=== PATIENT | female | born 1940 | race Caucasian/White ===

== ENCOUNTER → 2020-06-12 | Outpatient (CLI) | payer MEDICARE, OTHER | LOC: LABNPT 08:12 | PROVIDERS: ATTEND Internal Medicine Gastroenterology | DX: Z01.812 Encounter for preprocedural laboratory examination (principal) | CPT/HCPCS: 87635 ==

== ENCOUNTER → 2020-06-17 | Outpatient (CLI) | payer MEDICARE, OTHER | LOC: LABNPT 05:32 | PROVIDERS: ATTEND Internal Medicine Gastroenterology | DX: Z01.812 Encounter for preprocedural laboratory examination (principal); Z20.828 Contact with and (suspected) exposure to other viral communicable diseases | CPT/HCPCS: 87635 ==

== ENCOUNTER → 2021-04-12 | Outpatient (CLI) | payer MEDICARE, OTHER ==
[~2021-04-12] MED LIST: CATHETER FLUSH 10 ML SYR IV PRN; HOLD METFORMIN - RECEIVED CONTRAST 20 ML VIAL IV SCH; IOHEXOL 350 MG/ML 100 ML (OMNIPAQUE 350) VIAL IV ONE; NS 100 ML (IVPB) BAG IV ONE
[2021-04-12 08:21] LABS: CREATININE SERUM 0.67 MG/DL (0.60-1.30)
--- NOTE | 2021-04-12 09:44 | Diagnostic Imaging Report ---
PROCEDURE: CT chest with contrast only. TECHNIQUE: Multiple contiguous axial images were obtained through the chest after administration of intravenous contrast. Auto Exposure Controls were utilized during the CT exam to meet ALARA standards for radiation dose reduction. DATE: April 12, 2021. COMPARISON: Chest radiographs September 10, 2013. INDICATION: 80-year-old female, shortness of breath. History of tobacco use and basal cell carcinoma of the face. FINDINGS: There is a 3 mm right upper lobe pulmonary nodule on axial image 17. There are mild linear opacities in left lower lobe and left upper lobe consistent with mild atelectasis and/or scarring. There is no additional focal airspace consolidation. There is no pneumothorax. There is no pleural effusion. The more central airways are patent. The heart is not enlarged. There is no pericardial effusion. There are coronary artery calcifications and additional areas of atherosclerotic disease. 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 There is no identified abnormally enlarged mediastinal, hilar, or axillary lymph node which meets CT size criteria for adenopathy. There is a right adrenal nodule on axial image 120 measuring up to 2.6 cm in size with internal attenuation of 10 Hounsfield units which is consistent with an adrenal adenoma. There is also an adrenal adenoma on the left measuring up to 3.1 cm in size. There is a 5 mm low-attenuation lesion in the left lobe of liver on axial image 112 which is too small to characterize. There is no identified acute bony abnormality. IMPRESSION: CT CHEST. 1. 3 mm noncalcified right upper lobe pulmonary nodule. Recommend followup CT chest in 6 months to evaluate for stability. 2. No identified acute cardiopulmonary abnormality. 3. Bilateral adrenal adenomas. 4. Coronary artery calcifications and atherosclerotic disease with approximately 90% stenosis of the proximal aspect of the left subclavian artery. Dictated by: Dictated on workstation # [id number]
== END ==
LOC: RAD 07:45
PROVIDERS: ATTEND Nurse Practitioner Family
DX: D35.02 Benign neoplasm of left adrenal gland (principal); D35.01 Benign neoplasm of right adrenal gland; R91.8 Other nonspecific abnormal finding of lung field; I25.10 Atherosclerotic heart disease of native coronary artery without angina pectoris; Z87.891 Personal history of nicotine dependence; Z85.828 Personal history of other malignant neoplasm of skin
CPT/HCPCS: 36415; 71260; 82565; 84520

== ENCOUNTER → 2021-10-20 | Outpatient (CLI) | payer MEDICARE, OTHER ==
--- NOTE | 2021-10-20 10:12 | Diagnostic Imaging Report ---
EXAMINATION: CT chest without contrast. TECHNIQUE: Multiple contiguous axial images were obtained through the chest without the use of intravenous contrast. All CT scans use one or more of the following dose optimizing techniques: automated exposure control, MA and/or KvP adjustment based on patient size and exam type or iterative reconstruction. HISTORY: 6 MONTH F/U COMPARISON: 04/12/2021 FINDINGS: Thyroid: The thyroid is normal. Mediastinum: Heart size is normal without significant pericardial effusion. Calcifications of the aorta and coronary vessels. Thoracic aorta is normal in caliber. No suspicious lymphadenopathy. Lungs and airways: The lungs are clear without consolidation, pleural effusion, or pneumothorax. Stable pulmonary nodules measuring 0.5 cm in the left lower lobe (series 3 image 109). Stable 0.3 cm right upper lobe pulmonary nodule. The airways are normal. Upper abdomen: Bilateral adrenal adenomas are present. Musculoskeletal: Degenerative changes of the spine without suspicious osseous lesion or compression fracture. IMPRESSION: 1. Stable pulmonary nodules measuring up to 0.5 cm in left lower lobe. Consider continued CT follow-up in 6-12 months. 2. No other acute abnormality in the chest. Dictated by: Dictated on workstation # [id number]
== END ==
LOC: RAD 08:45
PROVIDERS: ATTEND Nurse Practitioner Family
DX: R91.8 Other nonspecific abnormal finding of lung field (principal)
CPT/HCPCS: 71250

== ENCOUNTER → 2022-07-21 | Outpatient (CLI) | payer MEDICARE, OTHER ==
--- NOTE | 2022-07-21 16:37 | Diagnostic Imaging Report ---
INDICATION: Back pain. EXAMINATION: AP and lateral views of the lumbar spine were obtained as well as lateral flexion and extension views. COMPARISON: There is no prior study for comparison. The lumbar vertebrae are normal in height. There is spondylolysis at L5 with grade 1 spondylolisthesis of L5 on S1. There is about 1 cm of anterior listhesis of L5 on S1, this does not appear to change between flexion and extension. There is disc space narrowing at L5-S1 as well as at L1-L2 with osteophyte formation. IMPRESSION: No acute bone abnormality. There is spondylolysis of L5 with grade 2 spondylolisthesis. This ot appear to change between flexion and extension. There are degenerative changes seen at L5-S1 and L1-L2. Dictated by: Dictated on workstation # [id number]
== END ==
LOC: RAD 11:47
PROVIDERS: ATTEND Nurse Practitioner Family
DX: M47.816 Spondylosis without myelopathy or radiculopathy, lumbar region (principal); M47.817 Spondylosis without myelopathy or radiculopathy, lumbosacral region; M43.16 Spondylolisthesis, lumbar region
CPT/HCPCS: 72110

== ENCOUNTER → 2022-08-01 | Outpatient (CLI) | payer MEDICARE ==
--- NOTE | 2022-08-01 13:10 | Diagnostic Imaging Report ---
PROCEDURE: MRI lumbar spine. TECHNIQUE: Multiplanar, multisequence MRI of the lumbar spine was performed without contrast. INDICATION: Chronic back pain. Correlation made with radiographs 07/21/2022. FINDINGS: There are nonedematous chronic appearing bilateral L5 spondylolysis defects associated with stable grade 1 anterolisthesis of L5 on S1 with posterior cortices off 8 to 9 mm. Remaining pedicles and pars intact. The alignment across the remaining lumbar spine anatomic. The conus appeared normal. There is no paravertebral mass, hemorrhage or fluid collection. Note is made of bilateral adrenal masses partially visualized unchanged from correlative chest CT 04/12/2021, where they were shown to be fat-containing and owing to chronic benign adenomas. There is a normal dispersal pattern of the nerves of the cauda equina. The visualized aorta nonaneurysmal. There is a L3 inferior endplate Schmorl's node deformity chronic. No acute bony pathology. T12-L1: Mild degenerative disc bulge diffusely results in no stenosis. L1-L2: Severe degenerative disc space narrowing, endplate sclerosis and osteophytes but no substantial spinal canal stenosis and mild bi-foraminal narrowing is present greater right. L2-L3: This disc shows desiccation but no significant displacement. There is no significant canal, foraminal or recess narrowing. L3-L4: Disc desiccation, bulge endplate osteophytes, thickened ligamenta flava and facet arthrosis result in a moderate severity of spinal canal stenosis. There is moderate left and [id number] right neural foraminal narrowing and mild narrowing of the left lateral recess. L4-L5: Thickened ligament flava facet arthrosis, disc bulge and endplate osteophytes result in no significant canal stenosis. There is mild left and mild right foraminal narrowing. L5-S1: No significant spinal canal stenosis, listhesis, endplate osteophytes, disc bulge and facet arthrosis however resultant moderate severity's of bi-foraminal narrowing slightly greater left. No significant impingement upon the lateral recesses. IMPRESSION: Chronic L5 spondylolysis defects with unchanged grade 1 L5 on S1 anterolisthesis but no acute bony pathology. Multilevel degenerative changes with canal, foraminal and recess stenoses of varying severity as detailed above greatest at the 5 one bilateral L5-S1 neural foramina. No acute chronic known fat-containing benign adrenal adenomas showed no obvious change from a correlative chest CT. Dictated by: Dictated on workstation # [id number]
== END ==
LOC: RAD 09:36
PROVIDERS: ATTEND Nurse Practitioner Family
DX: M47.816 Spondylosis without myelopathy or radiculopathy, lumbar region (principal); M47.817 Spondylosis without myelopathy or radiculopathy, lumbosacral region; M51.26 Other intervertebral disc displacement, lumbar region; M51.27 Other intervertebral disc displacement, lumbosacral region; M51.36 Other intervertebral disc degeneration, lumbar region; M48.061 Spinal stenosis, lumbar region without neurogenic claudication; M48.07 Spinal stenosis, lumbosacral region; M43.17 Spondylolisthesis, lumbosacral region; D35.00 Benign neoplasm of unspecified adrenal gland
CPT/HCPCS: 72148